=== PATIENT | male | born 1955 | race Caucasian/White ===

== ENCOUNTER 2017-03-09 07:51 | Day surgery (SDC) | payer OTHER ==
[2017-03-09] MEDS ORDERED: BUPIVACAINE 0.5% 30 ML SDV ONE (07:59)
--- NOTE | 2017-03-09 08:03 | PDGENHP ---
History and Physical - Chief Complaint Hernia - History of Present Illness Patient is a 61-year-old male that comes to our office for evaluation of right inguinal hernia. Patient reports it is soft and reducible but does cause him some discomfort. He wonders if should be repaired has questions regarding this. Past medical history erectile dysfunction kidney stones benign prostatic hypertrophy Past surgical history prostate microwave therapy, vasectomy Medications bupropion Cialis lorazepam tamsulosin Allergies sulfa Family history heart disease hypertension Social history nonsmoker, no alcohol use Review of systems in a 10 point systems Physical exam pleasant male in no apparent distress Head and neck normocephalic atraumatic Chest CTA bilaterally Heart regular rhythm rate Abdomen right inguinal mass consistent with hernia, soft reducible nontender Extremities no lower extremity edema, normal dorsalis pedis pulses to palpation Impression 61-year-old male with right inguinal hernia Laparoscopic right inguinal hernia repairs discussed with the patient in detail including risks of recurrence, scrotal edema, bleeding, hematoma, nerve injury. Patient seen examined by Dr. Antony and wishes to proceed with scheduling laparoscopic right inguinal hernia surgery. As usual we will examine the other side so this could be a bilateral procedure. History Information - Allergies/Home Medication List Allergies/Adverse Reactions: Sulfa (Sulfonamide Antibiotics) Allergy (Verified 09/14/16 15:24) Swelling/neck,face,throat Home Medications: LORazepam [Ativan 2 mg tab] 2 mg PO HS 04/18/11 [Last Taken 09/22/16] OXcarbazepine [Trileptal 300mg (*)] 300 mg PO DAILY 04/18/11 [Last Taken ] buPROPion SR [Wellbutrin 150mg SR (*)] 300 mg PO DAILY 04/18/11 [Last Taken ] FENOFIBRATE 160 mg PO HS 09/14/16 [Last Taken Unknown] OXcarbazepine [Trileptal 300mg (*)] 450 mg PO HS 09/22/16 [Last Taken Unknown] I have personally reviewed and updated: family history (Please see above) Past Medical History: Please see above - Social History Smoking Status: Former smoker Review of Systems Review of Systems: Please see above ROS: 10pt was reviewed & negative except for what was stated in HPI & below Physical Exam Physical Exam: Please see above Assessment & Plan Assessment: Please see above
--- NOTE | 2017-03-09 08:05 | PDHPUP ---
History & Physical Update H&P update statement: This history and physical update is based on an assessment of the patient which was completed after admission or registration (within 24 hours), but prior to the surgery/procedure.
[2017-03-09] MEDS ORDERED: ceFAZolin 2 GM/DEXTROSE 100 ML IV ONE (08:13)
[2017-03-09] MEDS ORDERED: LR 1,000 ML IV SCH (08:13)
[2017-03-09] MEDS ORDERED: LIDOCAINE 1% 2 ML INJ ID PRN (08:36)
[2017-03-09] MEDS ORDERED: LR 1,000 ML IV ONE (08:36)
[2017-03-09] MEDS ORDERED: LIDOCAINE 1% 2 ML INJ ONE (08:43)
[2017-03-09] MEDS ORDERED: MIDAZOLAM 2 MG/2 ML VIAL IVP ONE (09:13)
[2017-03-09] MEDS ORDERED: ONDANSETRON DISINTEGRATING 4 MG TAB PO PRN (09:30)
--- NOTE | 2017-03-09 09:59 | PDANEPAE ---
ANE History of Present Illness Patient presents for hernia repair ANE Past Medical History - Cardiovascular History Hx Hypertension: No Hx Arrhythmias: No Hx Chest Pain: No Hx Coronary Artery / Peripheral Vascular Disease: No Hx CHF / Valvular Disease: No Hx Palpitations: No - Pulmonary History Hx COPD: No Hx Asthma/Reactive Airway Disease: No Hx Recent Upper Respiratory Infection: No Hx Oxygen in Use at Home: No - Neurologic History Hx Cerebrovascular Accident: Yes Hx Seizures: No Hx Dementia: No - Endocrine History Hx Diabetes: No - Renal History Hx Renal Disorders: Yes - Liver History Hx Hepatic Disorders: No - Neurological & Psychiatric Hx Hx Neurological and Psychiatric Disorders: Yes - Cancer History Hx Cancer: No - Congenital Disorder History Hx Congenital Disorders: No - GI History Hx Gastrointestinal Disorders: No - Chronic Pain History Chronic Pain: Yes (ING HERNIA) ANE Review of Systems - Exercise capacity Exercise capacity: >=4 METS METS (RN): 4 METS ANE Patient History - Allergies Allergies/Adverse Reactions: Sulfa (Sulfonamide Antibiotics) Allergy (Verified 03/09/17 09:18) Swelling/neck,face,throat - Home Medications Home Medications: LORazepam [Ativan 2 mg tab] 2 mg PO HS 04/18/11 [Last Taken 03/08/17] OXcarbazepine [Trileptal 300mg (*)] 300 mg PO DAILY 04/18/11 [Last Taken 07:00] buPROPion SR [Wellbutrin 150mg SR (*)] 300 mg PO DAILY 04/18/11 [Last Taken 07:00] FENOFIBRATE 160 mg PO HS 09/14/16 [Last Taken 03/08/17] OXcarbazepine [Trileptal 300mg (*)] 450 mg PO HS 09/22/16 [Last Taken 03/08/17] - NPO status NPO Since - Liquids (Date): 03/09/17 NPO Since - Liquids (Time): 07:00 NPO Since - Solids (Date): 03/08/17 NPO Since - Solids (Time): 20:00 - Smoking Hx Smoking Status: Former smoker - Family Anes Hx Family Hx Anesthesia Complications: NONE ANE Labs/Vital Signs - Vital Signs Blood Pressure: 116/76 Heart Rate: 62 Respiratory Rate: 16 O2 Sat (%): 94 Height: 185.42 cm Weight: 106.594 kg ANE Physical Exam - Airway Neck exam: FROM Mallampati Score: Class 1 Mouth exam: dentures Mouth image: 1 - loose - Pulmonary Pulmonary: no respiratory distress - Cardiovascular Cardiovascular: regular rate and rhythym - ASA Status ASA Status: II ANE Anesthesia Plan Anesthesia Plan: general endotracheal anesthesia (GA, RBA discussed including risk of right lower incisor coming out during suergery and airway manipulation. Pt agrees to proceed. )
[2017-03-09] MEDS ORDERED: fentaNYL 100 MCG/2 ML INJ ONE ×3 (10:02→11:56)
[2017-03-09] MEDS ORDERED: PROPOFOL 200 MG/20 ML VIAL ONE (10:03)
[2017-03-09] MEDS ORDERED: HYDROCODONE/APAP 5/325 TAB PO PRN (10:06)
[2017-03-09] MEDS ORDERED: DEXAMETHASONE 4 MG/ML VIAL ONE (10:23)
[2017-03-09] MEDS ORDERED: ONDANSETRON 4 MG/2 ML VIAL ONE ×3 (10:23→12:42)
[2017-03-09] MEDS ORDERED: ROCURONIUM 50 MG/5 ML VIAL ONE (10:24)
[2017-03-09] MEDS ORDERED: PROMETHAZINE HCL 25 MG/ML INJ IVP PRN (10:38)
[2017-03-09] MEDS ORDERED: NALOXONE HCL 0.4 MG/ML INJ IVP PRN (10:38)
[2017-03-09] MEDS ORDERED: LABETALOL HCL 5 MG/ML 20 ML MDV IVP PRN (10:38)
[2017-03-09] MEDS ORDERED: ONDANSETRON 4 MG/2 ML VIAL IVP PRN (10:38)
[2017-03-09] MEDS ORDERED: SUGAMMADEX SODIUM 200 MG/2 ML VIAL IVP ONE (10:44)
[2017-03-09] MEDS ORDERED: HYDROmorphONE/DILAUDID 1 MG/ML SYR ONE ×2 (11:20→11:56)
[2017-03-09] MEDS: fentaNYL 100 MCG/2 ML INJ IVP PRN ×4 (11:21→12:05)
[2017-03-09] MEDS: HYDROmorphONE/DILAUDID 1 MG/ML SYR IVP PRN ×4 (11:25→12:02)
--- NOTE | 2017-03-09 11:31 | POSTANESTH ---
Post Anesthetic Evaluation Cardiovascular Status: Normal, Stable Respiratory Status: Normal, Stable Level of Consciousness/Mental Status: Can Participate in Eval Pain Control: Adequate, Prn Tx Ordered Nausea/Vomiting Control: Inadeq, Add Tx Reqired Complications Possibly Related to Anesthesia: None Noted
[2017-03-09] MEDS ORDERED: HYDROCODONE/APAP 5/325 TAB ONE (12:22)
--- NOTE | 2017-03-09 12:44 | POSTOPPROG ---
Post Op Note Date of Operation: 03/09/17 Surgeon: Silas Antony Felting Machine Operator Helper: Ilya Blair Anesthesiologist: Dr Hand Anesthesia: GET(General Endotracheal) Pre-op Diagnosis: r inguinal hernia Post-op Diagnosis: same Indication: pain Procedure: Lap R inguinal hernia repair, exploration left side (no hernia) Findings: Right inguinal hernia Inf/Abcess present in the surg proc area at time of surgery?: No Depth: Organ Space EBL: Minimal
[2017-03-09 13:57] VITALS: BP 116/68; PULSE 69; RESP 14; TEMP 98.2; O2SAT 92
== END 2017-03-09 13:55 | disposition home or self-care (01) ==
LOC: FSGY 07:51
PROVIDERS: ATTEND Surgery
PROC: 0YJ64ZZ Inspection of Left Inguinal Region, Percutaneous Endoscopic Approach (ICD-10-PCS; principal; 2017-03-09 09:30)
PROC: 0YU54JZ Supplement Right Inguinal Region with Synthetic Substitute, Percutaneous Endoscopic Approach (ICD-10-PCS; principal; 2017-03-09 09:30)
DX: K40.90 Unilateral inguinal hernia, without obstruction or gangrene, not specified as recurrent (principal); N40.0 Benign prostatic hyperplasia without lower urinary tract symptoms; Z87.442 Personal history of urinary calculi
CPT/HCPCS: 49650; C1727; C1781; J0690; J1100; J1170; J2250; J2405; J2704; J3010

== ENCOUNTER → 2018-07-13 | Outpatient (CLI) | payer OTHER | LOC: FIMAGING 11:42 | PROVIDERS: ATTEND Family Medicine Sports Medicine | DX: M54.16 Radiculopathy, lumbar region (principal) ==